=== PATIENT | male | born 1995 | race Caucasian/White ===

== ENCOUNTER → 2018-02-03 14:53 | Outpatient (CLI) | payer BC, SELFPAY ==
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
== END ==
PROVIDERS: PCP Pediatrics; Visit Provider Registered Nurse
DX: S69.92XA Unspecified injury of left wrist, hand and finger(s), initial encounter (principal); M79.645 Pain in left finger(s)
CPT/HCPCS: 73140

== ENCOUNTER 2018-03-04 17:41 | Emergency (ER) | payer BC, SELFPAY ==
[2018-03-04 17:45] VITALS: BP 116/64; PULSE 62; RESP 14; TEMP 36.4; O2SAT 98
--- NOTE | 2018-03-04 19:41 | W.ED.GENAD ---
Discharge Plan Disposition Patient Disposition: HOME Condition: Good Discharge Details Chief Complaint: Abd Prob Clinical Impression: Calculus of distal right ureter Primary Care Provider: Nigel Diaz ED Provider: Betito Iglesias Meds and New Rx's Prescriptions: New tamsulosin 0.4 mg capsule 0.4 mg PO DAILY Qty: 20 RF: 0 Continue fluoxetine 10 mg capsule 10 mg PO DAILY Qty: 30 RF: 1 Discharge Instructions Instructions: Tamsulosin (By mouth), Renal Colic (ED) Additional Instructions: You have a 3 mm kidney stone in the distal right ureter. We will start you on Flomax to see if it helps move the stone. We will also try to get you into the urology clinic this week. Return to ED for fever, vomiting, severe pain. You may use Tylenol or Motrin if needed for pain. Referrals: Geoff Berry MD [ [facility] STAFF PHYSICIAN] - Discharge Data Discharge Date/Time-TO BE ENTERED AT DEPARTURE: 03/04/18 21:40 Medical Decision Making Patient presenting with intermittent right lower quadrant pain described as cramping and sharp in nature. He appears well at this time and his exam is unremarkable. There is possibly a small inguinal hernia but I do not think that is what is causing his pain. It is possible since he has some dysuria that it could be kidney stone although having months of symptoms makes this seem less likely. We will go ahead and get laboratory studies, urine and a CT stone study. He is not having pain or symptoms currently. Patient's laboratory studies are unremarkable. Kidney function normal. White count minimally elevated. Urine does have blood present. CT scan shows a 3 mm right UVJ stone with mild hydronephrosis. Patient is currently pain-free. He has had symptoms for a couple of months. I am going to start him on Flomax and refer him to urology this week. He may use Motrin or Tylenol as needed for pain. Return to ED for severe pain, fever, vomiting. Findings and plan discussed with patient who is in agreement. Lab Data Lab results reviewed: Yes I reviewed the patient's lab results. HPI General Mode of arrival: ambulatory. Date/Time Provider Initiated Documentation: 03/04/18 18:47. Limitations to Documentation: no limitations. Information obtained by: patient. HPI Narrative: Patient presents to ED with intermittent right lower quadrant cramping pain that radiates to the groin and testicle. It has been present now for a couple of months. Tonight was quite severe after he had a bowel movement and urinated. He has not had any hematuria. He does occasionally have dysuria. He has intermittent constipation alternating with diarrhea. He has not had blood in his stool. He has no nausea/vomiting. He has had no fevers that he is aware of. He has had a fairly significant weight loss over the last year but attributes that to increased activity. He currently does not have pain as it has since resolved. He is transitioning to primary care and cannot get into see them anytime soon. Because the pain was so severe tonight he decided to come in for evaluation. Related Data Home Medications Medication Instructions Recorded Confirmed fluoxetine 10 mg capsule 10 mg PO DAILY #30 cap 02/24/18 03/04/18 tamsulosin 0.4 mg PO DAILY #20 cap 03/04/18 Previous Rx's Medication Instructions Recorded fluoxetine 10 mg capsule 10 mg PO DAILY #30 cap 02/24/18 tamsulosin 0.4 mg PO DAILY #20 cap 03/04/18 Allergies Allergy/AdvReac Type Severity Reaction Status Date / Time No Known Allergies Allergy Unverified 03/04/18 17:52 General Stated Complaint: Abd Prob LOLY: 3 Review of Systems Constitutional Denies chills, Denies fever(s), Denies headache(s), Denies malaise, Denies night sweats, Denies poor appetite, Denies weakness and Reports weight loss Eyes Denies change in vision and Denies eye discharge ENT Denies otalgia, Denies headache(s), Denies nasal congestion and Denies sore throat Cardiovascular Denies chest pain, Denies diaphoresis, Denies syncope, Denies edema, Denies leg edema, Denies lightheadedness, Denies palpitations and Denies dyspnea Respiratory Denies chest congestion, Denies cough and Denies dyspnea Gastrointestinal Reports abdominal pain, Denies hematochezia, Reports constipation, Reports cramping, Reports diarrhea, Denies nausea, Denies vomiting and Denies hematemesis Genitourinary Denies hematuria, Reports dysuria, Denies flank pain, Denies penile discharge, Denies scrotal swelling, Denies testicular mass, Reports testicular pain and Denies urinary frequency Musculoskeletal Denies back pain, Denies myalgias and Denies arthralgias Integumentary/Breasts Denies erythema and Denies rash Neurologic Denies confusion, Denies syncope, Denies headache(s), Denies sensory deficit and Denies weakness Psychiatric Denies confusion Endocrine Denies palpitations PFSH Family History Mother Essential hypertension Father Healthy adult on routine physical examination Other Diabetes Personal history of malignant neoplasm Brother Diabetes Brother Personal history of malignant neoplasm Medical History Depression (Chronic) Tylenol overdose (~2014) Social History Smoking/Tobacco Use Status: Never substance use type: marijuana Surgical History History of ankle surgery (Inactive) Exam Const General: cooperative and no acute distress Nutritional Appearance: obese Orientation: alert and oriented x3 HENMT Head: normocephalic and atraumatic Mouth: moist mucous membranes Eyes Conjunctivae: conjunctivae normal Sclera: sclerae normal Resp Effort & Inspection: normal respiratory effort Auscultation: clear to auscultation bilaterally Cardio Rate: regular rate Rhythm: regular rhythm Heart Sounds: S1 normal and S2 normal GI Inspection: normal to inspection Palpation: soft, not firm, no guarding and nontender Male General Exam: Yes normal external exam, Yes hernia (possible small right inguinal hernia with coughing) and No inguinal lymphadenopathy Penis: normal penis Scrotum: scrotum normal Testes: normal Back/Spine/Pelvis Back: no CVA tenderness Skin General skin exam: no rashes or lesions noted Neuro General: alert, oriented x3, no focal motor deficits and CN's II-XI intact bilaterally Extrem General: normal to inspection and full ROM Course Vital Signs Temperature 97.5 F L 03/04/18 17:45 Pulse 62 03/04/18 17:45 Respiratory Rate 14 03/04/18 17:45 Blood Pressure 116/64 03/04/18 17:45 Pulse Oximetry 98 03/04/18 17:45 Temperature 97.5 F L 03/04/18 17:45 Temperature Source Skin 03/04/18 17:45 Pulse 62 03/04/18 17:45 Respiratory Rate 14 03/04/18 17:45 Respiratory Effort 03/04/18 17:52 Blood Pressure 116/64 03/04/18 17:45 Blood Pressure Position Sitting 03/04/18 17:45 Pulse Oximetry 98 03/04/18 17:45 Oxygen Delivery Method Room Air 03/04/18 17:45 Oxygen Flow Rate 0 03/04/18 17:45 Pain Level 1 03/04/18 17:45
--- NOTE | 2018-03-04 19:43 | DI.CT_ITS ---
SYMPTOM/DIAGNOSIS: RLQ INTERMITTENT CRAMPING PAIN ABDOMINAL, PELVIC CT 03/[address] examination of the abdomen and pelvis was performed. Images obtained through the lung bases are unremarkable. Liver, spleen and pancreas are unremarkable by noncontrast criteria. Gallbladder and biliary ducts are CT normal. Abdominal aorta is of normal diameter. No abdominal wall hernia is seen. No significant abdominal or pelvic adenopathy is seen. Appendix appears normal. No evidence of diverticulitis or bowel obstruction. Adrenals appear normal bilaterally. Right kidney shows slight hydronephrosis and there is mild hydroureter on the right to the level of the UVJ where there is a 3 mm in diameter obstructing stone. Tiny nonobstructing left mid pole renal calculus noted without evidence of obstruction. No left ureteral stone seen. CONCLUSION: Obstructing 3 mm in diameter right ureterovesical junction calculus.
--- NOTE | 2018-03-04 20:13 | DI.VRAD_ITS ---
EXAM: CT Abdomen and Pelvis Without Intravenous Contrast CLINICAL HISTORY: 22 years old, male; Pain; Abdominal pain TECHNIQUE: Axial computed tomography images of the abdomen and pelvis without intravenous contrast. Coronal and sagittal reformatted images were created and reviewed. COMPARISON: CT ABD PELVIS WITH CONTRAST 07/06/2016 4:54 AM FINDINGS: Lung bases: No focal pathology. No mass. No consolidation. ABDOMEN: Liver: No focal pathology. Gallbladder and bile ducts: No focal pathology. No calcified stones. No ductal dilation. Pancreas: No focal pathology. No ductal dilation. Spleen: No focal pathology. No splenomegaly. Adrenals: No focal pathology. No mass. Kidneys and ureters: 3 mm distal right ureteral stone, just proximal to the right ureterovesicular junction, causing mild right hydroureteronephrosis. No right nephrolithiasis. Subcentimeter nonobstructive left nephrolithiasis. Stomach and bowel: No focal pathology. No obstruction. No mucosal thickening. PELVIS: Appendix: No findings to suggest acute appendicitis. Bladder: No focal pathology. No stones. Reproductive: Unremarkable as visualized. ABDOMEN and PELVIS: Intraperitoneal space: No free air. No significant fluid collection. Bones/joints: No acute fracture. No dislocation. Soft tissues: Unremarkable. Vasculature: No focal pathology. No abdominal aortic aneurysm. Lymph nodes: No enlarged lymph nodes. IMPRESSION: 3 mm distal right ureteral stone, just proximal to the right ureterovesicular junction, causing mild right hydroureteronephrosis. Dictated and Authenticated by: Vianca Heck MD. Ordering:KOSTAS PRECIADO MD
[2018-03-04 20:30] LABS: ALT 27 U/L (12-78); AST 15 U/L (15-37); Albumin 4.5 g/dL (3.4-5.0); Alkaline Phosphatase 84 U/L (46-116); Anion Gap 9.1 mmol/L (3-11); BUN 9 mg/dL (7-18); Bilirubin, Total 0.5 mg/dL (0.2-1.0); CO2 28.9 mmol/L (21.0-32.0); CREATININE 0.83 mg/dL (0.70-1.30); Calcium 9.6 mg/dL (8.5-10.1); Chloride 102 mmol/L (98-107); Glucose 84 mg/dL (70-100); Lipase 94 U/L (73-393); Potassium 3.8 mmol/L (3.5-5.1); Sodium 140 mmol/L (136-145); Total Protein 7.9 g/dL (6.4-8.2)
[2018-03-04 20:34] LABS: Bilirubin Negative (Negative); Blood Moderate (Negative); Clarity Cloudy; Glucose Negative (Negative); Ketones Negative (Negative); Leukocyte Esterase Negative (Negative); Nitrite Negative (Negative); Specific Gravity 1.015 (1.005-1.025); Urobilinogen 0.2 EU/dL (Up TO 0.2)
[2018-03-04 20:57] LABS: Bacteria Rare HPF (Negative); C & S Indicated? No; Crystals Negative HPF (Negative); Epithelial Cells Rare HPF (Negative); Mucus Negative (Negative); RBC >50 (0-2); WBC Negative HPF (0-5)
[2018-03-04 21:26] LABS: Abs Immature Grans 0.03 k/cumm (0.0-0.09); Absolute Basophil Count 0.05 k/cumm (0.0-0.2); Absolute Lymphocyte Count 4.91 k/cumm (1.2-3.4); Absolute Neutrophil Count 6.36 k/cumm (1.2-6.7); Basophils % 0.4; Eosinophils % 3.2; HCT 44.9 % (40.0-50.0); HGB 16.1 g/dL (13.5-17.5); Immature Grans % 0.2; Lymphocytes % 39.5; Mean Corp. HGB Concentration 35.9 g/dL (32.0-36.0); Mean Corpuscular Hemoglobin 31.3 pg (27.0-33.0); Mean Corpuscular Volume 87.4 fL (80-95); Mean Platelet Volume 9.8 fL (8.0-11.0); Monocytes % 5.6; Neutrophils % 51.1; Platelet Count 319 x1000/uL (130-400); RBC 5.14 m/cumm (4.50-6.00); RBC Distribution Width 12.6 % (11.8-14.1); White Blood Cell Count 12.44 k/cumm (4.4-10.8)
[2018-03-04 21:39] VITALS: BP 116/64; PULSE 62; RESP 14; TEMP 36.4; O2SAT 98
[2018-03-04] MEDS: Tamsulosin 0.4 MG CAPCR PO (21:39)
--- NOTE | 2018-03-07 13:06 | PDOC.ERCMPRO ---
Care Management Progress Note 03/07/18-Pt seen on 03/04/[address] Nat Iglesias for 3 mm distal right ureteral stone. Fax f/u sent to Urology.
== END 2018-03-04 21:40 | disposition home or self-care (01) ==
PROVIDERS: Emergency Provider Emergency Medicine; PCP Family Medicine
DX: N13.2 Hydronephrosis with renal and ureteral calculous obstruction (principal)
CPT/HCPCS: 36415; 80053; 83690; 99284; 74176; 81003; 81015; 85025; 99285

== ENCOUNTER 2018-03-10 02:52 | Emergency (ER) | payer BC, SELFPAY ==
[2018-03-10 02:54] VITALS: BP 142/79; PULSE 55; RESP 18; TEMP 36.7; O2SAT 98
[2018-03-10 03:07] LABS: Bilirubin Negative (Negative); Blood Moderate (Negative); Clarity Clear; Glucose Negative (Negative); Ketones Negative (Negative); Leukocyte Esterase Negative (Negative); Nitrite Negative (Negative); Specific Gravity 1.025 (1.005-1.025); Urobilinogen 0.2 EU/dL (Up TO 0.2); pH 5.5 (5-8)
--- NOTE | 2018-03-10 03:10 | ED.GENADUL_ITS ---
Discharge Plan Disposition Patient Disposition: HOME Condition: Stable Discharge Details Chief Complaint: Urinary Clinical Impression: Renal colic Primary Care Provider: Nigel Diaz ED Provider: Sammy Irving Home Meds and New Rx's Prescriptions: New oxycodone 5 mg capsule 5 mg PO Q4H PRN (Reason: pain) 10 Days Qty: 10 RF: 0 ondansetron 4 mg tablet,disintegrating 4 mg PO TID PRN (Reason: nausea and vomiting) 5 Days Qty: 20 RF: 0 Continue fluoxetine 10 mg capsule 10 mg PO DAILY Qty: 30 RF: 1 tamsulosin 0.4 mg capsule 0.4 mg PO DAILY Qty: 20 RF: 0 Discharge Instructions Instructions: Oxycodone, Rapid Release (By mouth), Renal Colic (ED) Additional Instructions: take 600mg ibuprofen and 1000mg tylenol every 6 hours for pain as needed if you need additional pain relief take 1 oxycodone. Do not drink alcohol or drive if you take this medicine if you have fevers, persistent vomit or severe uncontrolled pain return to the emergency department Discharge Data Discharge Physician: Sammy Irving Medical Decision Making 22 yo male comes in with right lower abd and back pain starting about a week ago. Was here a week ago with similar symptoms and dx'd on CT with right 3mm ureteral stone. He has been doing well since and is scheduled to see urology on 03/22. He doesn't feel he passed the stone yet and had significant increased pain tonight so came here. Based on his exam I suspect his pain is from kidney stone, no rlq tenderness and neg rovsing's signs and neg obturator/psoas sign so doubt appendicitis. normal testicular exam so doubt torsion. Will check UA and treat his pain as he hasn't taken anything and reassess. pt's pain significantly improved, 9/10 to 5/10 after toradol. UA shows hematuria otherwise no significant abnormalities. Discusses risks of opiates and after discussion patient chose to start this treatment. Will have him f/u as scheduled with urology and return precautions for uncontrolled pain, persistent vomit or fevers given Differential Diagnosis renal colic, ureteral stone, uti Lab Data Lab results reviewed: Yes I reviewed the patient's lab results. HPI General Mode of arrival: ambulatory . Date/Time Provider Initiated Documentation: 03/10/18 02:56 . Limitations to Documentation: no limitations . Information obtained by: patient . History of Present Illness 22 year old M presents to the emergency department with the chief complaint of right sided abdominal and back pain, described as moderate, with intensity rated at 6. Quality is described as stabbing, and is localized to the back and abdomen. Patient reports no radiation. Patient started experiencing this hour(s) (1) and it has been constant. No relieving factors improve symptom(s), No exacerbating factors reported . Patient notes no other symptoms.. Patient did receive the following treatments prior to arrival, none Related Data Home Medications Medication Instructions Recorded Confirmed fluoxetine 10 mg capsule 10 mg PO DAILY #30 cap 02/24/18 03/10/18 tamsulosin 0.4 mg PO DAILY #20 cap 03/04/18 03/10/18 ondansetron 4 mg PO TID PRN 5 Days #20 tab 03/10/18 oxycodone 5 mg PO Q4H PRN 10 Days #10 cap 03/10/18 Previous Rx's Medication Instructions Recorded fluoxetine 10 mg capsule 10 mg PO DAILY #30 cap 02/24/18 tamsulosin 0.4 mg PO DAILY #20 cap 03/04/18 ondansetron 4 mg PO TID PRN 5 Days #20 tab 03/10/18 oxycodone 5 mg PO Q4H PRN 10 Days #10 cap 03/10/18 Allergies Allergy/AdvReac Type Severity Reaction Status Date / Time No Known Allergies Allergy Unverified 03/10/18 03:10 General Stated Complaint: Urinary LOLY: 3 Review of Systems Review of Systems All systems reviewed & are unremarkable except as noted in HPI and below Constitutional Denies chills, Denies fever(s) and Denies weakness Eyes Denies loss of vision ENT Denies change in voice Cardiovascular Denies chest pain and Denies dyspnea Respiratory Denies dyspnea Gastrointestinal Reports abdominal pain, Denies nausea and Denies vomiting Genitourinary Denies dysuria Musculoskeletal Denies joint swelling Integumentary/Breasts Denies rash Neurologic Denies loss of vision and Denies weakness Psychiatric Denies depression Endocrine Denies cold intolerance and Denies heat intolerance Allergic/Immunologic Reports urticaria PFSH Family History Mother Essential hypertension Father Healthy adult on routine physical examination Other Diabetes Personal history of malignant neoplasm Brother Diabetes Brother Personal history of malignant neoplasm Medical History Depression (Chronic) Tylenol overdose (~2015) Social History Smoking/Tobacco Use Status: Never substance use type: marijuana Surgical History History of ankle surgery (Inactive) Exam Const General: no acute distress Orientation: alert HENMT Head: normal to inspection Ears: external ears normal General nose exam: external nose normal Mouth: moist mucous membranes Eyes General: appearance normal, both eyes and all related structures Neck Neck: normal visual inspection Resp Effort & Inspection: normal respiratory effort and able to speak in complete sentences Cardio Rate: regular rate GI Inspection: normal to inspection Palpation: soft and nontender Penis: normal penis Meatus: meatus normal Scrotum: scrotum normal and cremasteric reflex present Testes: normal, testicular lie normal, no testicular mass, no testicular swelling, no testicular tenderness and normal testicular lie Skin General skin exam: no rashes or lesions noted Neuro General: alert and oriented x3 Extrem General: normal to inspection Psych Mental Status: mental status grossly normal Course Vital Signs Temperature 36.7 C 03/10/18 02:54 Pulse 55 L 03/10/18 02:54 Respiratory Rate 18 03/10/18 02:54 Blood Pressure 142/79 H 03/10/18 02:54 Pulse Oximetry 98 03/10/18 02:54 Temperature 36.7 C 03/10/18 02:54 Pulse 55 L 03/10/18 02:54 Respiratory Rate 18 03/10/18 02:54 Respiratory Effort Non-Labored 03/10/18 02:58 Blood Pressure 142/79 H 03/10/18 02:54 Blood Pressure Position Sitting 03/10/18 02:54 Pulse Oximetry 98 03/10/18 02:54 Oxygen Delivery Method Room Air 03/10/18 02:54 Oxygen Flow Rate 0 03/10/18 02:54 Pain Level 9 03/10/18 02:58
[2018-03-10] MEDS: Ketorolac 30 MG/ML VIAL IM (03:13)
[2018-03-10 03:18] LABS: Bacteria Negative HPF (Negative); C & S Indicated? No; Casts Negative LPF (Negative); Crystals Negative HPF (Negative); Epithelial Cells Negative HPF (Negative); Mucus Negative (Negative); WBC 0-2 HPF (0-5)
[2018-03-10 03:44] VITALS: BP 118/70; PULSE 58; RESP 18; TEMP 36.7; O2SAT 98
[2018-03-10] MEDS: oxyCODONE 5 MG TAB PO ×2 (03:52)
== END 2018-03-10 03:51 | disposition home or self-care (01) ==
LOC: ER 03:59
PROVIDERS: Emergency Provider Emergency Medicine; PCP Family Medicine
DX: N23 Unspecified renal colic (principal); R31.9 Hematuria, unspecified; Z87.442 Personal history of urinary calculi
CPT/HCPCS: 96372; 99284; 81003; 81015; J1885

== ENCOUNTER 2018-03-17 11:36 | Emergency (ER) | payer BC, SELFPAY ==
[2018-03-17 11:42] VITALS: BP 109/60; PULSE 54; RESP 16; TEMP 36.8; O2SAT 98
--- NOTE | 2018-03-17 11:52 | W.ED.GENAD ---
Discharge Plan Disposition Patient Disposition: HOME Condition: Good Discharge Details Chief Complaint: Urinary Clinical Impression: Difficulty urinating Primary Care Provider: Nigel Diaz ED Provider: Sammy Irving Home Meds and New Rx's Prescriptions: No Action fluoxetine 10 mg capsule 10 mg PO DAILY Qty: 30 RF: 1 Discharge Instructions Additional Instructions: you had no evidence of obstruction on your bedside ultrasound today. Follow up with your urologist next week as scheduled if you have severe worsening of pain, fevers or weakness return to the emergency department Discharge Data Discharge Physician: Sammy Irving Medical Decision Making 22 yo male who denies chronic medical problems comes in with chief complaint of difficulty urinating this morning. He was diagnosed with a kidney stone earlier this month and is due to see urology next week. He states his pain is gone but this morning had some difficulty urinating so came here. He has no hydronephrosis on bedside u/s and has 70cc of urine on bedside u/s. Denies any fevers or dysuria so doubt uti. I suspect he didn't have a full lbadder as he can urinate here. No saddle anesthesia, weakness, fevers or ivdu so doubt cauda equina or sea. Advised f/u with urology and return precautions given. He also notes 2 weeks of rectal pain and on eam has a 1cm nontrhombosed external hemorrhoid on rectal exam otherwise unremarkable, advised sitz baths and f/u with pcp Differential Diagnosis kidney stone, dehydration HPI General Mode of arrival: ambulatory. Date/Time Provider Initiated Documentation: 03/17/18 11:45. Limitations to Documentation: no limitations. Information obtained by: patient. History of Present Illness 22 year old M presents to the emergency department with the chief complaint of difficulty urinating, described as mild, No relieving factors improve symptom(s), No exacerbating factors reported . Patient notes no other symptoms.. Patient did receive the following treatments prior to arrival, none Related Data Home Medications Medication Instructions Recorded Confirmed fluoxetine 10 mg capsule 10 mg PO DAILY #30 cap 02/24/18 03/17/18 Previous Rx's Medication Instructions Recorded fluoxetine 10 mg capsule 10 mg PO DAILY #30 cap 02/24/18 Allergies Allergy/AdvReac Type Severity Reaction Status Date / Time No Known Allergies Allergy Unverified 03/17/18 11:46 General Stated Complaint: Urinary LOLY: 3 Review of Systems Review of Systems All systems reviewed & are unremarkable except as noted in HPI and below Constitutional Denies chills, Denies fever(s) and Denies weakness Eyes Denies loss of vision ENT Denies change in voice Cardiovascular Denies chest pain and Denies dyspnea Respiratory Denies dyspnea Gastrointestinal Denies abdominal pain, Denies nausea and Denies vomiting Genitourinary Denies dysuria Musculoskeletal Denies joint swelling Integumentary/Breasts Denies rash Neurologic Denies loss of vision and Denies weakness Psychiatric Denies depression Endocrine Denies cold intolerance and Denies heat intolerance Allergic/Immunologic Reports urticaria Exam Const General: no acute distress Orientation: alert [facility] Head: normal to inspection Ears: external ears normal General nose exam: external nose normal Mouth: moist mucous membranes Eyes General: appearance normal, both eyes and all related structures Neck Neck: normal visual inspection Resp Effort & Inspection: normal respiratory effort and able to speak in complete sentences Cardio Rate: regular rate Skin General skin exam: no rashes or lesions noted Neuro General: alert and oriented x3 Extrem General: normal to inspection Psych Mental Status: mental status grossly normal Course Vital Signs Temperature 36.8 C 03/17/18 11:42 Pulse 54 L 03/17/18 11:42 Respiratory Rate 16 03/17/18 11:42 Blood Pressure 109/60 03/17/18 11:42 Pulse Oximetry 98 03/17/18 11:42 Temperature 36.8 C 03/17/18 11:42 Temperature Source Skin 03/17/18 11:42 Pulse 54 L 03/17/18 11:42 Respiratory Rate 16 03/17/18 11:42 Respiratory Effort 03/17/18 11:46 Blood Pressure 109/60 03/17/18 11:42 Pulse Oximetry 98 03/17/18 11:42 Oxygen Delivery Method Room Air 03/17/18 11:42 Oxygen Flow Rate 0 03/17/18 11:42 Pain Level 0 03/17/18 11:42
--- NOTE | 2018-03-17 11:57 | ED.GENADUL_ITS ---
Discharge Plan Disposition Patient Disposition: HOME Condition: Good Discharge Details Chief Complaint: Urinary Clinical Impression: Difficulty urinating Primary Care Provider: Nigel Diaz ED Provider: Sammy Irving Home Meds and New Rx's Prescriptions: No Action fluoxetine 10 mg capsule 10 mg PO DAILY Qty: 30 RF: 1 Discharge Instructions Additional Instructions: you had no evidence of obstruction on your bedside ultrasound today. Follow up with your urologist next week as scheduled if you have severe worsening of pain, fevers or weakness return to the emergency department Discharge Data Discharge Physician: Sammy Irving Medical Decision Making 22 yo male who denies chronic medical problems comes in with chief complaint of difficulty urinating this morning. He was diagnosed with a kidney stone earlier this month and is due to see urology next week. He states his pain is gone but this morning had some difficulty urinating so came here. He has no hydronephrosis on bedside u/s and has 70cc of urine on bedside u/s. Denies any fevers or dysuria so doubt uti. I suspect he didn't have a full lbadder as he can urinate here. No saddle anesthesia, weakness, fevers or ivdu so doubt cauda equina or sea. Advised f/u with urology and return precautions given. He also notes 2 weeks of rectal pain and on eam has a 1cm nontrhombosed external hemorrhoid on rectal exam otherwise unremarkable, advised sitz baths and f/u with pcp Differential Diagnosis kidney stone, dehydration HPI General Mode of arrival: ambulatory . Date/Time Provider Initiated Documentation: 03/17/18 11:45 . Limitations to Documentation: no limitations . Information obtained by: patient . History of Present Illness 22 year old M presents to the emergency department with the chief complaint of difficulty urinating, described as mild, No relieving factors improve symptom(s), No exacerbating factors reported . Patient notes no other symptoms.. Patient did receive the following treatments prior to arrival, none Related Data Home Medications Medication Instructions Recorded Confirmed fluoxetine 10 mg capsule 10 mg PO DAILY #30 cap 02/24/18 03/17/18 Previous Rx's Medication Instructions Recorded fluoxetine 10 mg capsule 10 mg PO DAILY #30 cap 02/24/18 Allergies Allergy/AdvReac Type Severity Reaction Status Date / Time No Known Allergies Allergy Unverified 03/17/18 11:46 General Stated Complaint: Urinary LOLY: 3 Review of Systems Review of Systems All systems reviewed & are unremarkable except as noted in HPI and below Constitutional Denies chills, Denies fever(s) and Denies weakness Eyes Denies loss of vision ENT Denies change in voice Cardiovascular Denies chest pain and Denies dyspnea Respiratory Denies dyspnea Gastrointestinal Denies abdominal pain, Denies nausea and Denies vomiting Genitourinary Denies dysuria Musculoskeletal Denies joint swelling Integumentary/Breasts Denies rash Neurologic Denies loss of vision and Denies weakness Psychiatric Denies depression Endocrine Denies cold intolerance and Denies heat intolerance Allergic/Immunologic Reports urticaria Exam Const General: no acute distress Orientation: alert [facility] Head: normal to inspection Ears: external ears normal General nose exam: external nose normal Mouth: moist mucous membranes Eyes General: appearance normal, both eyes and all related structures Neck Neck: normal visual inspection Resp Effort & Inspection: normal respiratory effort and able to speak in complete sentences Cardio Rate: regular rate Skin General skin exam: no rashes or lesions noted Neuro General: alert and oriented x3 Extrem General: normal to inspection Psych Mental Status: mental status grossly normal Course Vital Signs Temperature 36.8 C 03/17/18 11:42 Pulse 54 L 03/17/18 11:42 Respiratory Rate 16 03/17/18 11:42 Blood Pressure 109/60 03/17/18 11:42 Pulse Oximetry 98 03/17/18 11:42 Temperature 36.8 C 03/17/18 11:42 Temperature Source Skin 03/17/18 11:42 Pulse 54 L 03/17/18 11:42 Respiratory Rate 16 03/17/18 11:42 Respiratory Effort 03/17/18 11:46 Blood Pressure 109/60 03/17/18 11:42 Pulse Oximetry 98 03/17/18 11:42 Oxygen Delivery Method Room Air 03/17/18 11:42 Oxygen Flow Rate 0 03/17/18 11:42 Pain Level 0 03/17/18 11:42
[2018-03-17 12:08] VITALS: BP 109/60; PULSE 54; RESP 16; TEMP 36.8; O2SAT 98
== END 2018-03-17 12:08 | disposition home or self-care (01) ==
LOC: ER 12:15
PROVIDERS: Emergency Provider Emergency Medicine; PCP Family Medicine
DX: R39.198 Other difficulties with micturition (principal)
CPT/HCPCS: 99281

== ENCOUNTER 2018-03-22 15:26 | Outpatient (REF) | payer BC, SELFPAY ==
[2018-03-23 18:05] LABS: Chlamydia Result Negative; GC Result Negative; Specimen Description URINE
== END 2018-03-22 15:46 ==
LOC: LBN 15:26
PROVIDERS: PCP Family Medicine; Visit Provider Nurse Practitioner Gerontology
DX: R30.0 Dysuria (principal)
CPT/HCPCS: 87491; 87591

== ENCOUNTER 2018-08-30 08:13 | Emergency (ER) | payer BC, SELFPAY ==
[2018-08-30 08:21] VITALS: BP 133/67; PULSE 63; RESP 18; TEMP 36.5; O2SAT 97
[2018-08-30 08:40] LABS: Abs Immature Grans 0.01 k/cumm (0.0-0.09); Absolute Basophil Count 0.03 k/cumm (0.0-0.2); Absolute Eosinophil Count 0.41 k/cumm (0.0-0.7); Absolute Lymphocyte Count 3.45 k/cumm (1.2-3.4); Absolute Monocyte Count 0.68 k/cumm (0.11-0.7); Absolute Neutrophil Count 3.97 k/cumm (1.2-6.7); Basophils % 0.4; Eosinophils % 4.8; HCT 42.5 % (40.0-50.0); HGB 15.4 g/dL (13.5-17.5); Immature Grans % 0.1; Lymphocytes % 40.4; Mean Corp. HGB Concentration 36.2 g/dL (32.0-36.0); Mean Corpuscular Hemoglobin 32.3 pg (27.0-33.0); Mean Corpuscular Volume 89.1 fL (80-95); Mean Platelet Volume 9.2 fL (8.0-11.0); Neutrophils % 46.3; Platelet Count 244 x1000/uL (130-400); RBC 4.77 m/cumm (4.50-6.00); RBC Distribution Width 12.4 % (11.8-14.1); White Blood Cell Count 8.55 k/cumm (4.4-10.8)
--- NOTE | 2018-08-30 08:45 | DI.RAD_ITS ---
SYMPTOM/DIAGNOSIS: CHEST PAIN PA AND LATERAL CHEST: The heart is normal in size. The lungs are clear. The mediastinal structures and pleura appear intact. CONCLUSION: Normal chest.
--- NOTE | 2018-08-30 09:03 | NUR.NOTE ---
Flat Examiner assumes care of Linden at this time. Received pertinent report from Cassie Ty Note:
[2018-08-30 09:05] LABS: ALT 25 U/L (12-78); AST 13 U/L (15-37); Albumin 4.1 g/dL (3.4-5.0); Alkaline Phosphatase 71 U/L (46-116); Anion Gap 7.7 mmol/L (3-11); BUN 12 mg/dL (7-18); Bilirubin, Total 0.4 mg/dL (0.2-1.0); CO2 30.3 mmol/L (21.0-32.0); CREATININE 0.87 mg/dL (0.70-1.30); Calcium 9.1 mg/dL (8.5-10.1); Chloride 104 mmol/L (98-107); Glucose 94 mg/dL (70-100); Magnesium 1.7 mg/dL (1.8-2.4); Sodium 142 mmol/L (136-145); Total Protein 7.4 g/dL (6.4-8.2)
[2018-08-30 09:06] LABS: Troponin I < 0.02 ng/mL (0.00-0.06)
[2018-08-30 09:14] VITALS: BP 99/67; PULSE 50; RESP 10; TEMP 36.6; O2SAT 97
--- NOTE | 2018-08-30 09:14 | ED.GENADUL_ITS ---
Discharge Plan Disposition Patient Disposition: HOME Condition: Good Discharge Details Chief Complaint: Chest Pain Clinical Impression: Atypical chest pain Primary Care Provider: Nigel Diaz ED Provider: Nadia Varela Home Meds and New Rx's Prescriptions: New famotidine [Pepcid] 20 mg tablet 20 mg PO DAILY 14 Days Qty: 14 RF: 0 Continued fluoxetine 10 mg capsule 10 mg PO DAILY Qty: 30 RF: 11 Discharge Instructions Instructions: Chest Pain (ED) Additional Instructions: Drink plenty of fluids and get plenty of rest. Follow-up with your primary care doctor in 3 days for reevaluation. Return immediately to the emergency department with any worsening or new concerning symptoms. Discharge Data Discharge Physician: Nadia Varela Medical Decision Making 23-year-old male with a history of depression who presents with heartburn and substernal sharp squeezing chest pain since this morning. No other associated symptoms. Patient recently ran out of his antidepressants 1 week ago. He has been taking fluoxetine for [address] Ackerman had called the ER earlier this morning advising of her recommendation for pt to come to the ER for evaluation. The report noted that pt had a h/o CAD but this was erroneously reported and pt has no history of this. A cardiac workup was ordered on arrival based on this erroneous report. Discussed with patient that the differential diagnosis can include GI related pain as he complained of heart burn, stress/anxiety related to not having his antidepressants for 1 week, etc. Based on patient's age, no family history of cardiac disease, and history, does not appear consistent with ACS. No c/o tearing chest pain, does not appear c/w dissection. No DVT/PE risk factors. PERC negative. EKG notes a rate of 53, sinus bradycardia, incomplete right bundle branch block, no acute ST findings. Based on patient's complaint, will order a dose of Pepcid and GI cocktail and reassess per 1025 --labs reviewed and unremarkable. Normal white blood cell count, electrolytes, troponin and lipase. Chest x-ray negative. 1300 --Second troponin negative. Patient feels good and is requesting to go home. He denies any pain at this time. He is instructed to follow-up with his primary care doctor for reevaluation and to return here if worse. We will give a prescription for Pepcid. Medical Records Medical records reviewed: Yes I reviewed the patient's medical records. Lab Data Lab results reviewed: Yes I reviewed the patient's lab results. Laboratory Tests Range/Units 08/30/18 08/30/18 08/30/18 08:30 08:30 11:08 WBC (4.4-10.8) k/cumm 8.55 RBC (4.50-6.00) m/cumm 4.77 Hgb (13.5-17.5) g/dL 15.4 Hct (40.0-50.0) % 42.5 MCV (80-95) fL 89.1 MCH (27.0-33.0) pg 32.3 MCHC (32.0-36.0) g/dL 36.2 H RDW (11.8-14.1) % 12.4 Plt Count (130-400) x1000/uL 244 MPV (8.0-11.0) fL 9.2 Immature Gran % 0.1 Neutrophils % 46.3 Lymphocytes % 40.4 Monocytes % 8.0 Eosinophils % 4.8 Basophils % 0.4 Absolute Neutrophils (1.2-6.7) k/cumm 3.97 Absolute Lymphocytes (1.2-3.4) k/cumm 3.45 H Absolute Monocytes (0.11-0.7) k/cumm 0.68 Absolute Eosinophils (0.0-0.7) k/cumm 0.41 Absolute Basophils (0.0-0.2) k/cumm 0.03 Sodium (136-145) mmol/L 142 Potassium (3.5-5.1) mmol/L 4.0 Chloride (98-107) mmol/L 104 Carbon Dioxide (21.0-32.0) mmol/L 30.3 Anion Gap (3-11) mmol/L 7.7 BUN (7-18) mg/dL 12 Creatinine (0.70-1.30) mg/dL 0.87 Estimated GFR/1.73 m2 (mL/min/1.73m2) >= 60.00 Glucose (70-100) mg/dL 94 Calcium (8.5-10.1) mg/dL 9.1 Magnesium (1.8-2.4) mg/dL 1.7 L Total Bilirubin (0.2-1.0) mg/dL 0.4 AST (15-37) U/L 13 L ALT (12-78) U/L 25 Alkaline Phosphatase (46-116) U/L 71 Troponin I (0.00-0.06) ng/mL < 0.02 Total Protein (6.4-8.2) g/dL 7.4 Albumin (3.4-5.0) g/dL 4.1 Lipase (73-393) U/L 80 Urine Color (Yellow) Yellow Urine Clarity Clear Urine pH (5-8) 6.0 Ur Specific [place] (1.005-1.025) 1.020 Urine Protein (Negative) mg/dL Negative Urine Ketones (Negative) mg/dL Negative Urine Blood (Negative) Trace-intact H Urine Nitrite (Negative) Negative Urine Bilirubin (Negative) Negative Urine Urobilinogen (Up TO 0.2) EU/dL 0.2 Ur Leukocyte Esterase (Negative) Negative Urine RBC (0-2) 3-5 H Urine WBC (0-5) HPF 0-2 Ur Epithelial Cells (Negative) HPF Rare Urine Crystals (Negative) HPF Few calcium oxalate Urine Bacteria (Negative) HPF Rare Urine Casts (Negative) LPF Negative Urine Mucus (Negative) Trace Urine Other (Negative) Rare spermatozoa Ur Culture Indicated? No Urine Glucose (Negative) mg/dL Negative Range/Units 08/30/18 11:47 WBC (4.4-10.8) k/cumm RBC (4.50-6.00) m/cumm Hgb (13.5-17.5) g/dL Hct (40.0-50.0) % MCV (80-95) fL MCH (27.0-33.0) pg MCHC (32.0-36.0) g/dL RDW (11.8-14.1) % Plt Count (130-400) x1000/uL MPV (8.0-11.0) fL Immature Gran % Neutrophils % Lymphocytes % Monocytes % Eosinophils % Basophils % Absolute Neutrophils (1.2-6.7) k/cumm Absolute Lymphocytes (1.2-3.4) k/cumm Absolute Monocytes (0.11-0.7) k/cumm Absolute Eosinophils (0.0-0.7) k/cumm Absolute Basophils (0.0-0.2) k/cumm Sodium (136-145) mmol/L Potassium (3.5-5.1) mmol/L Chloride (98-107) mmol/L Carbon Dioxide (21.0-32.0) mmol/L Anion Gap (3-11) mmol/L BUN (7-18) mg/dL Creatinine (0.70-1.30) mg/dL Estimated GFR/1.73 m2 (mL/min/1.73m2) Glucose (70-100) mg/dL Calcium (8.5-10.1) mg/dL Magnesium (1.8-2.4) mg/dL Total Bilirubin (0.2-1.0) mg/dL AST (15-37) U/L ALT (12-78) U/L Alkaline Phosphatase (46-116) U/L Troponin I (0.00-0.06) ng/mL < 0.02 Total Protein (6.4-8.2) g/dL Albumin (3.4-5.0) g/dL Lipase (73-393) U/L Urine Color (Yellow) Urine Clarity Urine pH (5-8) Ur Specific [place] (1.005-1.025) Urine Protein (Negative) mg/dL Urine Ketones (Negative) mg/dL Urine Blood (Negative) Urine Nitrite (Negative) Urine Bilirubin (Negative) Urine Urobilinogen (Up TO 0.2) EU/dL Ur Leukocyte Esterase (Negative) Urine RBC (0-2) Urine WBC (0-5) HPF Ur Epithelial Cells (Negative) HPF Urine Crystals (Negative) HPF Urine Bacteria (Negative) HPF Urine Casts (Negative) LPF Urine Mucus (Negative) Urine Other (Negative) Ur Culture Indicated? Urine Glucose (Negative) mg/dL ECG Data Attestation: I personally reviewed and interpreted this ECG (s) as follows: Interpretation: Rate of 53, sinus bradycardia, right bundle branch block. No acute ST elevation or depression. QTc 415. QRS 96. HPI General Mode of arrival: ambulatory . Date/Time Provider Initiated Documentation: 08/30/18 08:29 . Limitations to Documentation: no limitations . Information obtained by: patient . HPI Narrative: Pt is a 23yo M with a history of depression who presents with chest pain since this morning. Patient states he awoke around 5am to go to work and he noticed heartburn. He states the heartburn then improved and then he noted stabbing and squeezing substernal chest pain. He states the pain is been intermittent, and was 7/10 at its worst and is currently 2/10. He denies fever, nausea, vomiting, coughing, shortness of breath, dizziness, recent surgery, recent travel. He states he did not take any medications for this pain. He states he did feel like the symptoms are worse when he was up and walking around and better when he was resting. Patient also states that he ran out of his fluoxetine 1 week ago for his depression. He also states that he called his primary care doctor today for the symptoms and was advised to come to the emergency department for evaluation. Related Data Home Medications Medication Instructions Recorded Confirmed fluoxetine 10 mg capsule 10 mg PO DAILY #30 cap 03/29/18 08/30/18 famotidine [Pepcid] 20 mg PO DAILY 14 Days #14 tab 08/30/18 Previous Rx's Medication Instructions Recorded fluoxetine 10 mg capsule 10 mg PO DAILY #30 cap 03/29/18 famotidine [Pepcid] 20 mg PO DAILY 14 Days #14 tab 08/30/18 Allergies Allergy/AdvReac Type Severity Reaction Status Date / Time No Known Allergies Allergy Verified 03/29/18 10:40 General Stated Complaint: Chest Pain LOLY: 2 Review of Systems Review of Systems All systems reviewed & are unremarkable except as noted in HPI and below Constitutional Reports as per HPI, Denies chills and Denies fever(s) Eyes Denies blurry vision ENT Denies dizziness, Denies sore throat and Denies throat swelling Cardiovascular Reports chest pain and Denies dyspnea Respiratory Denies cough and Denies dyspnea Gastrointestinal Denies abdominal pain, Denies diarrhea and Denies vomiting Genitourinary Denies hematuria and Denies dysuria Musculoskeletal Denies back pain and Denies numbness Integumentary/Breasts Denies lesions and Denies rash Neurologic Denies dizziness, Denies focal weakness and Denies numbness Allergic/Immunologic Denies throat swelling [facility] Medical History Depression (Chronic) Tylenol overdose (~2014) Surgical History History of ankle surgery (Inactive) Family History Mother Essential hypertension Father Healthy adult on routine physical examination Other Diabetes Personal history of malignant neoplasm Brother Diabetes Brother Personal history of malignant neoplasm Social History Smoking/Tobacco Use Status: Never Alcohol Intake: never Drug use: Daily Substance use type: marijuana Household members: significant other Duration: decline to answer Frequency: decline to answer Sunitha/Protestant: No preference Special sunitha needs: No Do you feel safe at home: Yes Do you feel safe in your relationship?: Yes Exam Const General: cooperative, healthy appearing and no acute distress HENMT Head: normal to inspection Face and sinus: normal facial exam Eyes General: appearance normal, both eyes and all related structures EOM: EOM intact bilaterally Neck Neck: normal visual inspection and No submandibular swelling Lymphatic: no lymphadenopathy noted Chest Chest: normal inspection of the chest and no tenderness Resp Effort & Inspection: normal respiratory effort and able to speak in complete sentences Auscultation: clear to auscultation bilaterally Cardio Rate: regular rate Rhythm: regular rhythm GI Inspection: normal to inspection Palpation: soft, not firm, not rigid and nontender Auscultation: normal bowel sounds Male General Exam: Yes normal external exam Back/Spine/Pelvis Thoracic/Lumbar Spine: thoracic and lumbar spine normal to inspection Skin General skin exam: no rashes or lesions noted Neuro General: alert, awake and oriented x3 Cognition: normal cognition Speech: speech normal Motor: muscle tone normal throughout Sensory Exam: no sensory deficits noted Extrem General: normal to inspection, full ROM and no edema Psych Appearance: grossly normal Mental Status: mental status grossly normal Speech and Movement: speech and movement normal Affect: normal affect Course Vital Signs Temperature 97.7 F 08/30/18 08:21 Pulse 63 08/30/18 08:21 Respiratory Rate 18 08/30/18 08:21 Blood Pressure 133/67 08/30/18 08:21 Pulse Oximetry 97 08/30/18 08:21 Temperature 97.7 F 08/30/18 08:21 Pulse 63 08/30/18 08:21 Respiratory Rate 18 08/30/18 08:21 Respiratory Effort Non-Labored 08/30/18 08:28 Respiratory Depth Normal 08/30/18 08:28 Blood Pressure 133/67 08/30/18 08:21 Blood Pressure Position Supine 08/30/18 08:21 Pulse Oximetry 97 08/30/18 08:21 Oxygen Delivery Method Room Air 08/30/18 08:21 Oxygen Flow Rate 0 08/30/18 08:21 Pain Level 1 08/30/18 08:21 Lab/Test Results Lab/Test Results: Laboratory Tests Range/Units 08/30/18 08/30/18 08:30 08:30 WBC (4.4-10.8) k/cumm 8.55 RBC (4.50-6.00) m/cumm 4.77 Hgb (13.5-17.5) g/dL 15.4 Hct (40.0-50.0) % 42.5 MCV (80-95) fL 89.1 MCH (27.0-33.0) pg 32.3 MCHC (32.0-36.0) g/dL 36.2 H RDW (11.8-14.1) % 12.4 Plt Count (130-400) x1000/uL 244 MPV (8.0-11.0) fL 9.2 Immature Gran % 0.1 Neutrophils % 46.3 Lymphocytes % 40.4 Monocytes % 8.0 Eosinophils % 4.8 Basophils % 0.4 Absolute Neutrophils (1.2-6.7) k/cumm 3.97 Absolute Lymphocytes (1.2-3.4) k/cumm 3.45 H Absolute Monocytes (0.11-0.7) k/cumm 0.68 Absolute Eosinophils (0.0-0.7) k/cumm 0.41 Absolute Basophils (0.0-0.2) k/cumm 0.03 Sodium (136-145) mmol/L 142 Potassium (3.5-5.1) mmol/L 4.0 Chloride (98-107) mmol/L 104 Carbon Dioxide (21.0-32.0) mmol/L 30.3 Anion Gap (3-11) mmol/L 7.7 BUN (7-18) mg/dL 12 Creatinine (0.70-1.30) mg/dL 0.87 Estimated GFR/1.73 m2 (mL/min/1.73m2) >= 60.00 Glucose (70-100) mg/dL 94 Calcium (8.5-10.1) mg/dL 9.1 Magnesium (1.8-2.4) mg/dL 1.7 L Total Bilirubin (0.2-1.0) mg/dL 0.4 AST (15-37) U/L 13 L ALT (12-78) U/L 25 Alkaline Phosphatase (46-116) U/L 71 Troponin I (0.00-0.06) ng/mL < 0.02 Total Protein (6.4-8.2) g/dL 7.4 Albumin (3.4-5.0) g/dL 4.1
[2018-08-30] MEDS: Famotidine 20 MG TAB PO (09:25)
[2018-08-30 10:05] LABS: Lipase 80 U/L (73-393)
[2018-08-30 11:07] LABS: Bilirubin Negative (Negative); Blood Trace-intact (Negative); Clarity Clear; Glucose Negative (Negative); Ketones Negative (Negative); Leukocyte Esterase Negative (Negative); Nitrite Negative (Negative); Urobilinogen 0.2 EU/dL (Up TO 0.2)
[2018-08-30] MEDS: Ketorolac 30 MG/ML VIAL IVP (11:08)
[2018-08-30 11:17] LABS: Bacteria Rare HPF (Negative); C & S Indicated? No; Casts Negative LPF (Negative); Crystals Few Calcium Oxalate HPF (Negative); Epithelial Cells Rare HPF (Negative); Mucus Trace (Negative); WBC 0-2 HPF (0-5)
[2018-08-30 12:18] LABS: Troponin I < 0.02 ng/mL (0.00-0.06)
== END 2018-08-30 13:42 | disposition home or self-care (01) ==
PROVIDERS: Emergency Provider Physician Assistant; PCP Family Medicine
DX: R07.89 Other chest pain (principal); R00.1 Bradycardia, unspecified; I45.19 Other right bundle-branch block; F32.9 Major depressive disorder, single episode, unspecified
CPT/HCPCS: 36415; 80053; 83690; 93005; 99285; 71046; 81003; 81015; 83735; 84484; 85025; 93010; J1885

== ENCOUNTER 2018-08-31 20:33 | Outpatient (REF) | payer BC, SELFPAY | END 2018-08-31 20:53 | LOC: LBN 20:33 | PROVIDERS: PCP Family Medicine; Visit Provider Family Medicine | DX: R30.0 Dysuria (principal) | CPT/HCPCS: 87086 ==

== ENCOUNTER 2018-09-07 20:51 | Outpatient (REF) | payer BC, SELFPAY ==
[2018-09-09 15:16] LABS: Chlamydia Result Negative; GC Result Negative; Specimen Description URINE
== END 2018-09-07 21:11 ==
LOC: LBN 20:51
PROVIDERS: PCP Family Medicine; Visit Provider Family Medicine
DX: N34.2 Other urethritis (principal)
CPT/HCPCS: 87491; 87591

== ENCOUNTER 2018-10-05 01:15 | Outpatient (CLI) | payer BC, SELFPAY ==
--- NOTE | 2018-10-05 14:25 | DI.US_ITS ---
SYMPTOMS/DIAGNOSIS: LEFT FLANK PAIN, R10.9, ABDOMINAL PAIN; N20.0, KIDNEY STONES, CALCULUS OF KIDNEY RENAL ULTRASOUND: Routine examination was performed. Comparison CT scan is 03/04/18. The right kidney measures 10.4 cm long. No renal mass, calculus or obstruction is seen. There is blood flow seen to the right kidney. The left kidney measures 11.2 cm long. No renal mass, calculus or obstruction is seen. There is blood flow seen to the left kidney. The prevoid urinary bladder volume is 190 cc. Both ureteral jets were visualized. No intraluminal mass was present. No wall thickening was seen. Postvoid urinary bladder volume was 13.8 cc. Prostatic volume is 15 cc. IMPRESSION: Normal renal ultrasound. No evidence of nephrolithiasis or hydronephrosis.
== END 2018-10-05 01:35 ==
PROVIDERS: PCP Family Medicine; Visit Provider Family Medicine
DX: N20.0 Calculus of kidney (principal); R10.32 Left lower quadrant pain
CPT/HCPCS: 76770

== ENCOUNTER 2020-06-06 03:28 | Outpatient (CLI) | payer BC, SELFPAY ==
[2020-06-08 15:56] LABS: COVID-19 RT-PCR UVMMC Result Negative (Negative)
== END 2020-06-06 03:48 ==
PROVIDERS: PCP Family Medicine; Visit Provider Urology
DX: Z11.59 Encounter for screening for other viral diseases (principal)
CPT/HCPCS: U0003

== ENCOUNTER 2020-06-10 09:02 | Day surgery (SDC) | payer BC, SELFPAY ==
[2020-06-10 09:52] VITALS: BP 110/68; PULSE 63; RESP 18; TEMP 36.7; O2SAT 98
[2020-06-10] MEDS: Lactated Ringers 1,000 ML 80 ML IV (10:11)
--- NOTE | 2020-06-10 10:34 | HPE_ITS ---
Date of service: 06/10/20 Time of Service: 10:35 Assessment and Plan Assessment and plan (1) Phimosis: Status: Chronic Assessment and plan: For circumcision History of Present Illness History of Present Illness Chief Complaint: Phimosis Narrative: This is a 24-year-old gentleman who has a history of phimosis. He tells me that symptomatically, things are fairly stable. He does have some cracking and bleeding of the phimotic area when he gets an erection. He has not had any voiding issues such as dysuria or gross hematuria. He has not gone into retention. He and his long-term girlfriend had broken up, so he is not sexually active at this time. Review of Systems Narrative: No fevers or chills No vision change or dysphasia No diabetes or thyroid No shortness of breath, cough or hemoptysis No chest pain or palpitations No nausea, vomiting, hepatitis, ulcers, jaundice, diarrhea or constipation No seizures, strokes or peripheral neuropathy No bleeding disorders or anemia No gout or arthralgia [facility] Medical History Depression Tylenol overdose (~2014) Surgical History History of ankle surgery Family History Mother Essential hypertension Father Healthy adult on routine physical examination Other Diabetes PGF Personal history of malignant neoplasm MGGM-breast, lung, PGM-brain, PGF-lung Brother Diabetes Brother Personal history of malignant neoplasm brain 2015 Social History Smoking/Tobacco Use Status: Never Smoking risk assessment performed?: Yes Alcohol Intake: never Drug use: Daily Substance use type: marijuana Household members: significant other Duration: decline to answer Frequency: decline to answer Sunitha/Scientology: No preference Special sunitha needs: No Do you feel safe at home: Yes Do you feel safe in your relationship?: Yes Meds Home Medications and Allergies Home Medications Medication Instructions Recorded Confirmed Type azithromycin 500 mg tablet 1,000 mg PO ONCE #2 tab 09/07/18 05/16/20 Rx Allergies Allergy/AdvReac Type Severity Reaction Status Date / Time No Known Allergies Allergy Verified 06/10/20 09:17 Exam Const General: cooperative and comfortable Neck Neck: supple Resp Effort & Inspection: normal respiratory effort Auscultation: clear to auscultation bilaterally Cardio Rate: regular rate Rhythm: regular rhythm GI Palpation: soft and no masses Penis: phimosis Neuro General: patient alert and patient awake Results Last Vital Signs Temp 36.7 C 06/10/20 09:52 Pulse 63 06/10/20 09:52 Resp 18 06/10/20 09:52 BP 110/68 06/10/20 09:52 Pulse Ox 98 06/10/20 09:52 COVID-19 Screening Have you, or household traveled for leisure in last 14 days?: No Had IN PERSON contact w/suspected or confirmed C-19 person: No
[2020-06-10] MEDS: ceFAZolin 1 GM/50 ML BAG IVPB (11:57)
[2020-06-10] MEDS: Bupivacaine 0.5% Pres-Free 30 ML VIAL (12:40)
--- NOTE | 2020-06-10 12:54 | W.PM.DSUDISC ---
Discharge Plan Disposition Patient Disposition: HOME Condition: Stable Discharge Details Reason For Visit: circumcision Attending Provider: Geoff Berry Primary Care Provider: Nigel Diaz Home Meds and New Rx's Prescriptions: New tramadol 50 mg tablet 50 mg PO Q6H PRNQty: 15 RF: 0 No Action azithromycin 500 mg tablet 1,000 mg PO ONCE Qty: 2 RF: 0 Discharge Instructions Additional Instructions: Pt to soak in tub and get bandage wet on 06/11/2020 - once bandage is wet, unwrap and leave bandage off Starting on 06/11/2020, OTC antibiotic ointment to incision daily OK to shower No sexual intercourse until after followup visit Followup 2 to 4 weeks Activity:: see above Remove Dressings/Wound Care:: 24 hours Shower/Bathe:: 24 hours Diet:: As Tolerated Discharge Orders Discharge Orders: Discharge Order (Routine); Ordered 06/10/20 Ordered By: Geoff Berry DS: Diagnosis Discharge Diagnosis (1) Phimosis: Status: Chronic
--- NOTE | 2020-06-10 13:15 | ROE_ITS ---
Date of service: 06/10/20 Time of Service: 13:15 Operative Note Operative Note DATE OF PROCEDURE: 06/10/20 PRE-OP DIAGNOSIS: Phimosis POST-OP DIAGNOSIS: same PROCEDURE: Circumcision SURGEON: Geoff Berry MANAGER BASKETBALL: Jenny Celestin ANESTHESIA: other (General without intubation) ESTIMATED BLOOD LOSS: 25 PATHOLOGY: none sent COMPLICATIONS: None Patient was transported to: same day Patient's condition: stable Indications: This is a 24-year-old gentleman who is uncircumcised. He has been unable to retract his foreskin. Whenever he develops an erection, the skin will crack and bleed. He presents for circumcision. Findings: Phimosis Procedure Description: He was brought to the operating room on 06/10/2020. After successful induction of general anesthesia, he was placed in the supine position. His genitalia was prepped and draped. A penile ring block was performed using quarter percent Marcaine without epinephrine. A dorsal penile nerve block was performed as well. Incision on the outer aspect of the foreskin. This incision was made at the level of the coronal sulcus. A dorsal slit was then performed so that we could expose the inner aspect of the foreskin. A second circumferential incision was made on the inner aspect of the foreskin. This was done about a centimeter below the coronal sulcus. Incisions were connected and the redundant foreskin was excised. Hemostasis was then obtained using a hand-held Bovie. The skin edges were reapproximated using simple interrupted 4-0 chromic sutures. With no significant pathology identified visually, we elected not to send the skin for pathology. Xeroflo dressing was then applied to the incision site. He was taken to the day surgery unit in stable condition.
[2020-06-10 13:34] VITALS: BP 105/65; PULSE 64; RESP 17; TEMP 36.4; O2SAT 100
== END 2020-06-10 14:20 | disposition home or self-care (01) ==
PROVIDERS: PCP Family Medicine; Visit Provider Urology
PROC: (CPT 54161; principal; 2020-06-10 12:30)
DX: N47.1 Phimosis (principal)
CPT/HCPCS: 54161; NC; J0690; J1100; J1200; J1885; J2001; J2405